=== PATIENT | female | born 1965 | race Caucasian/White ===

== ENCOUNTER 2017-09-05 14:14 | Inpatient (IN) | payer MEDICARE, MEDICAID ==
[~2017-09-05] VITALS: Ht 152.4 cm; Wt 67.8 kg
[~2017-09-05 14:14] MED LIST: ADVAIR 250/501 DISK INH; COMBIVENT RESPIM4 GM INH; DALIRESP500 MCG PO; DIFLUCAN100 MG PO; DUONEB 2.5-0.5 M3 ML UPD; FLOVENT HFA 11012 GM INH; FLUTICASONE PRO16 GM NASAL; HYDROCODON-ACE1 EAC3 PO; IPRAT-ALBUT 0.5-3 ML UPD; KLONOPIN0.5 MG PO; KLONOPIN1 MG PO; LEVAQUIN500 MG PO; LEVAQUIN750 MG PO; MEDROL DOSE PACK4 MG; MEDROL DOSE PACK4 MG PO; MUCINEX1200 MG/BO; NEURONTIN 300300 MG PO; NEURONTIN600 MG; NEURONTIN600 MG PO; NEURONTIN800 MG PO; NICODERM C1 PATCH .3; NORCO 7.5-3251 EACH GT; PREDNISONE20 MG; PRINIVIL20 MG PO; PROTONIX40 MG PO; PULMICORT0.5 MG/21 INH; SINGULAIR10 MG PO; SPIRIVA18 MCG INH; SYMBICORT 16010.2 GM INH; TYLENOL 8 HOUR650 MG PO; VALIUM5 MG PO
[2017-09-05 15:44] LABS: BASOPHILS 0.3 % (0-2); EOSINOPHILS 0.1 % (0-7); HEMATOCRIT 36.1 % (36.0-48.0); HEMOGLOBIN 11.6 g/dL (12-16); IMMATURE GRANULOCYTES 0.8 % (0-5); MCH 32.5 pg (26.0-34.0); MCHC 32.1 g/dL (31.0-37.0); MCV 101.1 fL (80.0-100.0); MEAN PLATELET VOLUME 9.4 fL (7.4-10.4); MONOCYTES 4.9 % (2-11); NEUTROPHILS 84.9 % (40-80); PLATELET COUNT 269 10x3/uL (130-400); RBC 3.57 10x6/uL (4.00-5.40); RDW 13.2 % (11.5-14.5); WBC 11.1 10x3/uL (4.8-10.8)
[2017-09-05 16:09] LABS: ALBUMIN 3.1 g/dL (3.4-5.0); ALKALINE PHOSPHATASE 125 U/L (46-116); ALT (SGPT) 47 U/L (10-68); BILIRUBIN - TOTAL 0.27 mg/dL (0.2-1.3); CALC OSMOLALITY 278 mosm/kg (275-300); CALCIUM 9.5 mg/dL (8.5-10.1); CARBON DIOXIDE 35.1 mmol/L (21.0-32.0); CHLORIDE - SERUM 98 mmol/L (98-107); CREATININE - SERUM 0.6 mg/dL (0.6-1.3); GLUCOSE 126 mg/dL (74-106); POTASSIUM - SERUM 3.8 mmol/L (3.5-5.1); PROTEIN - SERUM 6.9 g/dL (6.4-8.2); SODIUM 140 mmol/L (136-145); UREA NITROGEN 8 mg/dL (7-18); eGFR NON AFRICAN AMERICAN > 90 mL/min (90-120)
[2017-09-05 16:15] LABS: PRO BNP 93 pg/mL (0-125)
[2017-09-05 16:19] LABS: TROPONIN-I < 0.017 ng/mL (0.000-0.060)
[2017-09-05] MEDS ORDERED: MORPHINE PO ×2 (19:58→20:00)
[2017-09-06] VITALS (8 sets, daily range): BP systolic 115–166; BP diastolic 65–109; BMI 27.3
[2017-09-07 01:35] VITALS: BP 113/70
[2017-09-07 05:29] LABS: BASOPHILS 0 % (0-2); EOSINOPHILS 0 % (0-7); HEMATOCRIT 34.9 % (36.0-48.0); HEMOGLOBIN 11.4 g/dL (12-16); IMMATURE GRANULOCYTES 0.5 % (0-5); LYMPHOCYTES 9.4 % (15-50); MCH 32.2 pg (26.0-34.0); MCHC 32.7 g/dL (31.0-37.0); MEAN PLATELET VOLUME 9.5 fL (7.4-10.4); MONOCYTES 2.4 % (2-11); NEUTROPHILS 87.7 % (40-80); RBC 3.54 10x6/uL (4.00-5.40); RDW 13.2 % (11.5-14.5)
[2017-09-07 05:30] LABS: MCV 98.6 fL (80.0-100.0); PLATELET COUNT 370 10x3/uL (130-400); WBC 7.8 10x3/uL (4.8-10.8)
[2017-09-07 05:33] VITALS: BP 137/77
[2017-09-07 05:39] LABS: ALBUMIN 2.9 g/dL (3.4-5.0); ALKALINE PHOSPHATASE 101 U/L (46-116); ALT (SGPT) 43 U/L (10-68); CALCIUM 9.5 mg/dL (8.5-10.1); CARBON DIOXIDE 32.8 mmol/L (21.0-32.0); CHLORIDE - SERUM 99 mmol/L (98-107); GLUCOSE 126 mg/dL (74-106); POTASSIUM - SERUM 4.3 mmol/L (3.5-5.1); PROTEIN - SERUM 7.2 g/dL (6.4-8.2); SODIUM 142 mmol/L (136-145)
[2017-09-07 05:45] LABS: CALC OSMOLALITY 286 mosm/kg (275-300); CREATININE - SERUM 0.8 mg/dL (0.6-1.3); UREA NITROGEN 17 mg/dL (7-18); eGFR NON AFRICAN AMERICAN 79 mL/min (90-120)
[2017-09-07 07:53] VITALS: BP 148/92
[2017-09-07 11:14] VITALS: BP 141/83
[2017-09-07 12:53] VITALS: Ht 152.4 cm; Wt 67.8 kg
[2017-09-07 15:02] VITALS: BP 142/49
[2017-09-07 21:06] VITALS: BP 128/69
[2017-09-08 05:27] VITALS: BP 112/73
[2017-09-08 05:33] LABS: BASOPHILS 0 % (0-2); EOSINOPHILS 0.1 % (0-7); HEMATOCRIT 32.7 % (36.0-48.0); HEMOGLOBIN 10.5 g/dL (12-16); IMMATURE GRANULOCYTES 0.6 % (0-5); LYMPHOCYTES 22.3 % (15-50); MCH 31.7 pg (26.0-34.0); MCHC 32.1 g/dL (31.0-37.0); MCV 98.8 fL (80.0-100.0); MEAN PLATELET VOLUME 9.2 fL (7.4-10.4); PLATELET COUNT 397 10x3/uL (130-400); RBC 3.31 10x6/uL (4.00-5.40); RDW 13.5 % (11.5-14.5); WBC 10.9 10x3/uL (4.8-10.8)
[2017-09-08 05:35] LABS: ALBUMIN 2.7 g/dL (3.4-5.0); ALKALINE PHOSPHATASE 79 U/L (46-116); BILIRUBIN - TOTAL 0.19 mg/dL (0.2-1.3); CALC OSMOLALITY 286 mosm/kg (275-300); CALCIUM 8.6 mg/dL (8.5-10.1); CARBON DIOXIDE 35.6 mmol/L (21.0-32.0); CHLORIDE - SERUM 101 mmol/L (98-107); CREATININE - SERUM 0.7 mg/dL (0.6-1.3); GLUCOSE 98 mg/dL (74-106); PROTEIN - SERUM 6.5 g/dL (6.4-8.2); SODIUM 143 mmol/L (136-145); UREA NITROGEN 17 mg/dL (7-18); eGFR NON AFRICAN AMERICAN > 90 mL/min (90-120)
[2017-09-08 05:36] LABS: ALT (SGPT) 30 U/L (10-68); POTASSIUM - SERUM 3.3 mmol/L (3.5-5.1)
[2017-09-08 08:06] VITALS: BP 120/72
[2017-09-08 10:22] VITALS: BP 117/74
[2017-09-08 15:24] VITALS: BP 112/69
[2017-09-08 22:10] VITALS: BP 117/69
[2017-09-09 06:18] LABS: BASOPHILS 0.1 % (0-2); EOSINOPHILS 0.3 % (0-7); HEMATOCRIT 35.3 % (36.0-48.0); HEMOGLOBIN 11.1 g/dL (12-16); IMMATURE GRANULOCYTES 1.3 % (0-5); LYMPHOCYTES 21.7 % (15-50); MCH 31.7 pg (26.0-34.0); MCHC 31.4 g/dL (31.0-37.0); MCV 100.9 fL (80.0-100.0); MEAN PLATELET VOLUME 8.9 fL (7.4-10.4); MONOCYTES 8.9 % (2-11); NEUTROPHILS 67.7 % (40-80); PLATELET COUNT 400 10x3/uL (130-400); RDW 13.4 % (11.5-14.5); WBC 11.6 10x3/uL (4.8-10.8)
[2017-09-09 06:34] VITALS: BP 106/61
[2017-09-09 06:41] LABS: ALBUMIN 2.6 g/dL (3.4-5.0); ALKALINE PHOSPHATASE 70 U/L (46-116); ALT (SGPT) 37 U/L (10-68); BILIRUBIN - TOTAL 0.14 mg/dL (0.2-1.3); CALC OSMOLALITY 287 mosm/kg (275-300); CALCIUM 8.4 mg/dL (8.5-10.1); CARBON DIOXIDE 35.1 mmol/L (21.0-32.0); CHLORIDE - SERUM 104 mmol/L (98-107); GLUCOSE 78 mg/dL (74-106); POTASSIUM - SERUM 3.6 mmol/L (3.5-5.1); PROTEIN - SERUM 6.2 g/dL (6.4-8.2); SODIUM 144 mmol/L (136-145); UREA NITROGEN 18 mg/dL (7-18)
[2017-09-09 06:44] LABS: CREATININE - SERUM 0.5 mg/dL (0.6-1.3); eGFR NON AFRICAN AMERICAN > 90 mL/min (90-120)
[2017-09-09] MEDS ORDERED: NICODERM C1 PATCH .3 TRANSDERM (08:58)
[2017-09-09] MEDS ORDERED: LEVAQUIN500 MG PO (09:04)
[2017-09-09] MEDS ORDERED: STERAPRED DS 1010 MG PO (09:04)
== END 2017-09-09 13:43 | disposition home health service (06) | DRG 193 ==
LOC: D.ER 14:14 → D.EDHOLD 16:51 → D.M2 16:51
PROVIDERS: Family Medicine; Family Medicine Adult Medicine
DX: J18.9 Pneumonia, unspecified organism (principal); J96.21 Acute and chronic respiratory failure with hypoxia; J44.0 Chronic obstructive pulmonary disease with (acute) lower respiratory infection; J44.1 Chronic obstructive pulmonary disease with (acute) exacerbation; F17.203 Nicotine dependence unspecified, with withdrawal; D64.9 Anemia, unspecified; I10 Essential (primary) hypertension; F41.9 Anxiety disorder, unspecified